=== PATIENT | male | born 1985 | race Hispanic/Latino ===

== ENCOUNTER 2019-08-24 20:11 | Emergency (ER) | payer SELFPAY ==
[2019-08-24] MEDS ORDERED: Fluorescein Opthalmic Strip ONE (20:27)
[2019-08-24] MEDS ORDERED: Tetracaine 0.5% OPHTH SOLN/PF 4 ML BOT ONE (20:30)
[2019-08-24] MEDS ORDERED: Erythromycin Base 0.5% Ophth Oint 3.5 gm Tube ONE (20:53)
== END 2019-08-24 21:07 | disposition home or self-care (01) ==
LOC: MADERS 20:11
DX: T15.01XA Foreign body in cornea, right eye, initial encounter (principal)
CPT/HCPCS: 99283